=== PATIENT | male | born 1965 | race Caucasian/White ===

== ENCOUNTER 2018-02-03 18:40 | Emergency (ER) | payer SELFPAY ==
[2018-02-03] MEDS: LIDOCAINE 2% W/EPIN INJ 20ML **PRES FREE INJ (19:15)
[2018-02-03] MEDS: TETANUS/DIPHTHERIA TOX ADSORB ADULT 0.5ML SYR/VIAL (90714) IM (19:24)
== END 2018-02-03 19:49 | disposition home or self-care (01) ==
LOC: M ED 18:40
DX: S81.811A Laceration without foreign body, right lower leg, initial encounter (principal); W45.8XXA Other foreign body or object entering through skin, initial encounter; Y92.89 Other specified places as the place of occurrence of the external cause
CPT/HCPCS: 90714